=== PATIENT | female | born 1990 | race Caucasian/White ===

== ENCOUNTER 2017-05-31 13:33 | Emergency (ER) | payer MEDICARE, MEDICAID ==
[2017-05-31 13:54] VITALS: TEMP 98.3
[2017-05-31] MEDS ORDERED: Sodium Chloride 0.9% 1,000 ML IV ONE (14:55)
--- NOTE | 2017-05-31 14:56 | C.PDOC ---
History Of Present Illness 27 year old female presents to the ED with complaints of sudden onset of epigastric pain and lightheadedness beginning earlier today after eating lasagna. She states she felt like she was going to pas out, but did not have LOC. Patient denies chest pain, vomiting, diaphoresis, SOB, palpitations, headache, visual changes, extremity weakness, sensory changes. Patient admits to not always eating regularly/well and not drinking enough fluids. Time Seen by Provider: 05/31/17 14:36 Chief Complaint (Nursing): Syncope History Per: Patient History/Exam Limitations: no limitations Onset/Duration Of Symptoms: Mins Current Symptoms Are (Timing): Better Seizure Or Post-ictal Symptoms: None Fall Associated With With Symptoms: No Severity: Mild Past Medical History Reviewed: Historical Data, Nursing Documentation, Vital Signs Vital Signs: Last Vital Signs Temp 98.3 F 05/31/17 13:53 Pulse 77 05/31/17 17:20 Resp 15 05/31/17 17:20 BP 122/73 05/31/17 17:20 Pulse Ox 100 05/31/17 17:58 - Medical History PMH: No Chronic Diseases Family History: States: No Known Family Hx Other Family History: denies cardiac/PE/DVT history in family - Social History Hx Tobacco Use: No Hx Alcohol Use: No Hx Substance Use: No - Immunization History Hx Tetanus Toxoid Vaccination: No Hx Influenza Vaccination: No Hx Pneumococcal Vaccination: No Review Of Systems Except As Marked, All Systems Reviewed And Found Negative. Constitutional: Negative for: Fever, Chills Cardiovascular: Negative for: Chest Pain, Palpitations Respiratory: Negative for: Cough, Shortness of Breath Gastrointestinal: Positive for: Abdominal Pain (epigastric pain ). Negative for : Nausea, Vomiting, Diarrhea Genitourinary: Negative for: Dysuria, Hematuria Neurological: Positive for: Other (lightheadedness ). Negative for: Weakness, Numbness, Confusion, Altered Mental Status, Headache Physical Exam - Physical Exam Appears: Well, Non-toxic, No Acute Distress Skin: Warm, Dry Head: Atraumatic, Normacephalic Eye(s): bilateral: Normal Inspection (no nystagmus), PERRL, EOMI Oral Mucosa: Moist Neck: Supple Cardiovascular: Rhythm Regular, No Murmur Respiratory: Normal Breath Sounds, No Rales, No Rhonchi, No Wheezing Gastrointestinal/Abdominal: Normal Exam, Bowel Sounds, Soft, No Tenderness Back: No CVA Tenderness Extremity: Normal ROM, No Tenderness Neurological/Psych: Oriented x3, Normal Speech, Normal Cognition, Normal Cranial Nerves, No Cerebellar Signs, Normal Motor, Normal Sensation Gait: Steady ED Course And Treatment - Laboratory Results Result Diagrams: 05/31/17 15:43 05/31/17 15:43 ECG: Interpreted By Me, Viewed By Me ECG Rhythm: Sinus Rhythm ECG Interpretation: Normal Interpretation Of ECG: Normal axis, no acute ST-T wave changes. Rate From EC (bpm) O2 Sat by Pulse Oximetry: 100 (room air ) Pulse Ox Interpretation: Normal Progress Note: Blood work, EKG, UA, UPreg ordered and reviewed. Patient given IV NS bolus. Reevaluation Time: 17:00 Reassessment Condition: Improved (On reassessment, patient is resting comfortably and states she feels well. Blood work, EKG, UA/Upreg unremarkable, and orthostatic VS (-). Patient is well appearing, currently asymptomatic, and comfortable being discharged home. She was insructed to eat regularly, drink plenty of fluids, and follow up with PMD/clinic in 1-2 days. She understands she should return to ED if symptoms worsen.) Disposition Counseled Patient/Family Regarding: Diagnosis, Need For Followup - Disposition Referrals: [facility] [Outside] Disposition: HOME/ ROUTINE Disposition Time: 17:00 Condition: STABLE Additional Instructions: FOLLOW UP WITH YOUR DOCTOR IN 1-2 DAYS DRINK PLENTY OF FLUIDS AND EAT REGULARLY RETURN TO ER IF SYMPTOMS WORSEN Forms: General Discharge Instructions, [facility] (Czech) Print Language: VIETNAMESE - POA Present On Arrival: None - Clinical Impression Clinical Impression: Epigastric abdominal pain - Scribe Statement The provider has reviewed the documentation as recorded by the Scribe Karen Myers All medical record entries made by the Aleahibjohn were at my direction and personally dictated by me. I have reviewed the chart and agree that the record accurately reflects my personal performance of the history, physical exam, medical decision making, and the department course for this patient. I have also personally directed, reviewed, and agree with the discharge instructions and disposition
[2017-05-31 15:07] LABS: RBC URINE 4 /hpf (0-3); URINE BACTERIA RARE (<OCC); URINE BILIRUBIN NEGATIVE (NEGATIVE); URINE BLOOD NEGATIVE (NEGATIVE); URINE COLOR Yellow (YELLOW); URINE GLUCOSE (UA) NORMAL (Normal); URINE KETONE TRACE mg/dL (NEGATIVE); URINE LEUKOCYTE ESTERASE NEG Leu/uL (Negative); URINE PROTEIN 2+ mg/dL (NEGATIVE); URINE UROBILINOGEN NORMAL mg/dL (0.2-1.0); WBC URINE 3 /hpf (0-5)
[2017-05-31] MEDS ORDERED: Sodium Chloride 0.9% 1,000 ML ONE (15:46)
[2017-05-31 15:49] LABS: BASO # 0.1 K/uL (0.0-0.2); EOS # 0.2 K/uL (0.0-0.7); EOS % 2.5 % (0.0-4.0); HEMATOCRIT 40.7 % (34.0-47.0); LYMPH # 1.3 K/uL (1.0-4.3); LYMPH % 20.4 % (20.0-40.0); MEAN CELL VOLUME 91.8 fL (81.0-99.0); MEAN CORPUSCULAR HEMOGLOBIN 32.3 pg (27.0-31.0); MEAN CORPUSCULAR HGB CONC 35.1 g/dL (33.0-37.0); MEAN PLATELET VOLUME 7.9 fL (7.2-11.7); MONO # 0.4 K/uL (0.0-0.8); MONO % 5.8 % (0.0-10.0); RED CELL DISTRIBUTION WIDTH 12.5 % (11.5-14.5); WHITE BLOOD COUNT 6.4 K/uL (4.8-10.8)
[2017-05-31 16:11] LABS: CHLORIDE 106 mmol/L (98-107)
[2017-05-31 16:12] LABS: SODIUM 141 mmol/L (132-148)
[2017-05-31 16:14] LABS: BILIRUBIN,TOTAL 0.5 mg/dL (0.2-1.3); CARBON DIOXIDE 23 mmol/L (22-30); GFR AFRICAN-AMERICAN > 60
[2017-05-31 16:15] LABS: ALB/GLOB RATIO 1.5 (1.0-2.1); ALKALINE PHOSPHATASE 56 U/L (38-126); AST/SGOT 23 U/L (14-36)
[2017-05-31 16:16] LABS: ALT/SGPT 20 U/L (9-52); BLOOD UREA NITROGEN 20 mg/dL (7-17); CALCIUM 8.5 mg/dl (8.6-10.4); GLUCOSE,RANDOM 83 mg/dL (65-105)
[2017-05-31 17:22] VITALS: BP 122/73; PULSE 77; RESP 15
[2017-05-31 17:49] VITALS: O2SAT 100
--- NOTE | 2017-06-01 19:03 | CARD ---
APPROVED REPORT EKG Measurement Heart [id number] <Conclusion> Normal sinus rhythm with sinus arrhythmia Normal ECG
== END 2017-05-31 17:20 | disposition home or self-care (01) ==
LOC: C.ER 13:33
DX: R10.13 Epigastric pain (principal)
CPT/HCPCS: 80053; 81001; 83690; 84703; 85025; 93005; 96360; 99285; J7040